=== PATIENT | female | born 1985 | race Caucasian/White ===

== ENCOUNTER 2021-04-23 10:27 | Emergency (ER) | payer OTHER ==
[~2021-04-23] VITALS: Ht 160 cm; Wt 69.5 kg
[2021-04-23 11:58] LABS: BASO % 0.3 % (0.0-1.0); EOS # 0.1 10^3/uL (0.0-0.5); LYMPH # 0.4 10^3/uL (1.5-5.0); MEAN CORPUSCULAR HEMOGLOBIN 31.3 pg (27.0-33.0); MEAN CORPUSCULAR HGB CONC 34.1 g/dl (32.0-36.5); MEAN CORPUSCULAR VOLUME 91.7 fl (80.0-96.0); MONO # 0.5 10^3/uL (0.0-0.8); MONO % 4.5 % (2.0-8.0); NEUTROPHILS # 9.1 10^3/uL (1.5-8.5); NEUTROPHILS % 89.8 % (36.0-66.0); PLATELET COUNT, AUTOMATED 214 10^3/uL (150-450); WHITE BLOOD COUNT 10.1 10^3/uL (4.0-10.0)
[2021-04-23] MEDS ORDERED: ONDANSETRON 4MG/2ML VIAL IV ONE (12:15)
[2021-04-23] MEDS ORDERED: NS 1,000 ML IV ONE (12:15)
[2021-04-23 12:36] LABS: ALBUMIN 3.9 GM/DL (3.2-5.2); BILIRUBIN,DIRECT 0.3 MG/DL (0.0-0.2); BILIRUBIN,TOTAL 0.9 MG/DL (0.2-1.0); TOTAL PROTEIN 6.6 GM/DL (6.4-8.2)
[2021-04-23 15:00] VITALS: BP 110/62
[2021-04-23] MEDS ORDERED: ONDA4TAB6 PO (15:04)
== END 2021-04-23 15:46 | disposition home or self-care (01) ==
LOC: M ED 10:27
DX: A08.11 Acute gastroenteropathy due to Norwalk agent (principal); F10.10 Alcohol abuse, uncomplicated
CPT/HCPCS: 80047; 80076; 83690; 84702; 85025; 87505; 93041; 96361; 96374; 99285; J2405

== ENCOUNTER → 2022-03-13 | Outpatient (CLI) | payer OTHER ==
[~2022-03-13] MED LIST: ONDA4TAB6 PO
== END ==
LOC: M WHC 09:30
PROVIDERS: ATTEND Advanced Practice Midwife
DX: Z34.92 Encounter for supervision of normal pregnancy, unspecified, second trimester (principal); Z3A.19 19 weeks gestation of pregnancy

== ENCOUNTER 2022-07-31 15:17 | Inpatient (IN) | payer OTHER ==
[~2022-07-31] VITALS: Ht 160 cm; Wt 87.6 kg
[2022-07-31] MEDS ORDERED: LACTATED RINGER'S 1000 ML IV STA (15:29)
[2022-07-31] MEDS ORDERED: CARBOPROST TROMETHAMINE 250 MCG/ML AMP IM PRN (15:30)
[2022-07-31] MEDS ORDERED: PRENTAB9 PO (15:30)
[2022-07-31] MEDS ORDERED: LIDOCAINE 1% MDV 20ML VIAL INFIL PRN (15:30)
[2022-07-31] MEDS ORDERED: ECOT81TA5 PO (15:30)
[2022-07-31] MEDS ORDERED: LR 1,000 ML IV SCH ×2 (15:30→16:20)
[2022-07-31] MEDS ORDERED: METHYLERGONOVINE MALEATE 0.2MG/ML 1ML VIAL IM PRN (15:30)
[2022-07-31] MEDS ORDERED: TRANEXAMIC ACID INJection 1,000 MG in NS 100 ML IV PRN (15:30)
[2022-07-31] MEDS ORDERED: OXYTOCIN DRIP 30 UNITS in IV 1 EA IV PRN ×4 (15:30)
[2022-07-31 15:32] VITALS: BP 138/78
[2022-07-31 16:10] LABS: HEMATOCRIT 36.7 % (36.0-47.0); HEMOGLOBIN 12.8 g/dl (12.0-15.5); MEAN CORPUSCULAR HEMOGLOBIN 31.6 pg (27.0-33.0); MEAN CORPUSCULAR HGB CONC 34.9 g/dl (32.0-36.5); MEAN CORPUSCULAR VOLUME 90.6 fl (80.0-96.0); PLATELET COUNT, AUTOMATED 273 10^3/uL (150-450); RED BLOOD COUNT 4.05 10^6/uL (4.00-5.40); WHITE BLOOD COUNT 8.1 10^3/uL (4.0-10.0)
[2022-07-31] MEDS ORDERED: OXYTOCIN DRIP 30 UNITS in IV 1 EA IV SCH (16:20)
[2022-07-31 16:33] VITALS: BP 137/78
[2022-07-31] MEDS: miSOPROStol 50MCG 1/2 TABLET PO PRN ×2 (16:33→21:14)
[2022-08-01] VITALS (43 sets, daily range): BP systolic 105–194; BP diastolic 56–98
[2022-08-01] MEDS: miSOPROStol 50MCG 1/2 TABLET PO PRN ×2 (01:11→05:57)
[2022-08-01] MEDS ORDERED: NALOXONE INJ 0.4MG/1ML VIAL IV PRN (11:20)
[2022-08-01] MEDS ORDERED: LR 500 ML IV PRN (11:20)
[2022-08-01] MEDS ORDERED: diphenhydrAMINE 50MG/ML VIAL IV PRN (11:20)
[2022-08-01] MEDS ORDERED: EPIDURAL/PCA KEYS XX PRN (11:20)
[2022-08-01] MEDS ORDERED: ePHEDrine SULFATE 25 MG/5 ML(5MG/ML) SYRINGE IVP PRN (11:20)
[2022-08-01] MEDS ORDERED: ONDANSETRON 4MG 2ML VIAL IV PRN (11:20)
[2022-08-01] MEDS: FENTANYL/ROPIVACAINE/NACL BAG 100 ML EPIDURAL SCH ×2 (11:45→19:39)
[2022-08-02 00:07] VITALS: BP 135/66
[2022-08-02 00:13] LABS: CORD GAS ABE V -3.6; CORD GAS HCO3 V 22.8 MMOL/L; CORD GAS O2 SAT V 75.4 %; CORD GAS PH V 7.313 UNITS; CORD GAS PO2 V 31.9 mmHg; CORD GAS TCO2 V 24.2 MMOL/L
[2022-08-02 00:17] LABS: CORD GAS ABE A -4.1; CORD GAS HCO3 A 20.4 MMOL/L; CORD GAS O2 SAT A 99.7 %; CORD GAS PCO2 A 35.9 mmHg; CORD GAS PH A 7.372 UNITS; CORD GAS PO2 A 119.8 mmHg; CORD GAS SBC A 21.1 MMOL/L; CORD GAS TCO2 A 21.5 MMOL/L
[2022-08-02] MEDS: LR 1,000 ML IV SCH ×2 (00:20→06:37)
[2022-08-02] MEDS ORDERED: METHYLERGONOVINE MALEATE 0.2 MG TAB PO PRN (00:20)
[2022-08-02] MEDS ORDERED: RHOGAM 300MCG (1500IU) INJ IM SCH (00:20)
[2022-08-02] MEDS ORDERED: DOCUSATE SODIUM 100MG CAPSULE PO PRN (00:20)
[2022-08-02] MEDS ORDERED: ONDANSETRON 4MG 2ML VIAL IV PRN (00:20)
[2022-08-02] MEDS ORDERED: METOCLOPRAMIDE INJ 10MG/2ML VIAL IV PRN (00:20)
[2022-08-02] MEDS ORDERED: DIBUCAINE 1% OINTMENT 30GM TOP PRN (00:20)
[2022-08-02] MEDS ORDERED: OXYTOCIN DRIP 30 UNITS in IV 1 EA IV SCH (00:20)
[2022-08-02 00:38] VITALS: BP 125/77
[2022-08-02] MEDS: ACETAMINOPHEN 500 MG TAB PO SCH ×4 (01:00→19:00)
[2022-08-02 01:07] VITALS: BP 139/77
[2022-08-02] MEDS: IBUPROFEN 800 MG TAB PO SCH ×3 (02:03→17:00)
[2022-08-02 02:15] VITALS: BP 127/63; O2SAT 97
[2022-08-02 06:00] VITALS: BP 128/57; O2SAT 97
[2022-08-02] MEDS: PRENATAL VITAMINS CHEWABLE TABLET PO SCH (08:32)
[2022-08-02] MEDS ORDERED: PRENATAL VITAMINS CHEWABLE TABLET PO SCH (09:00)
[2022-08-02 18:00] VITALS: BP 124/60; O2SAT 98
[2022-08-03] MEDS: IBUPROFEN 800 MG TAB PO SCH ×2 (00:20→08:16)
[2022-08-03] MEDS: ACETAMINOPHEN 500 MG TAB PO SCH ×3 (00:21→13:49)
[2022-08-03 06:00] VITALS: BP 115/54; O2SAT 97
[2022-08-03 07:54] LABS: HEMATOCRIT 34.1 % (36.0-47.0); HEMOGLOBIN 11.5 g/dl (12.0-15.5); MEAN CORPUSCULAR HEMOGLOBIN 31.7 pg (27.0-33.0); MEAN CORPUSCULAR HGB CONC 33.7 g/dl (32.0-36.5); MEAN CORPUSCULAR VOLUME 93.9 fl (80.0-96.0); PLATELET COUNT, AUTOMATED 191 10^3/uL (150-450); RED BLOOD COUNT 3.63 10^6/uL (4.00-5.40); WHITE BLOOD COUNT 7.8 10^3/uL (4.0-10.0)
[2022-08-03] MEDS: PRENATAL VITAMINS CHEWABLE TABLET PO SCH (08:15)
[2022-08-03] MEDS ORDERED: COLA100C5 PO (09:39)
[2022-08-03] MEDS ORDERED: ACET-683 PO (09:39)
[2022-08-03] MEDS ORDERED: IBUP80TA PO (09:39)
[2022-08-04] MEDS ORDERED: MEASLES,MUMPS,RUBELLA VACCINE INJ (MMR-II) SC.IMMUN ONE (09:00)
== END 2022-08-03 17:26 | disposition home or self-care (01) | DRG 807 ==
LOC: M LDI 15:17 → M OBS 08-02 02:06
PROVIDERS: ADMIT Advanced Practice Midwife; ATTEND Obstetrics & Gynecology
PROC: 3E0P7GC Introduction of Other Therapeutic Substance into Female Reproductive, Via Natural or Artificial Opening (ICD-10-PCS; 2022-07-31)
PROC: 10E0XZZ Delivery of Products of Conception, External Approach (ICD-10-PCS; principal; 2022-08-01)
DX: O80 Encounter for full-term uncomplicated delivery (principal); Z37.0 Single live birth; Z3A.39 39 weeks gestation of pregnancy